=== PATIENT | male | born 1975 | race Caucasian/White ===

== ENCOUNTER 2017-05-26 22:19 | Emergency (ER) | payer OTHER ==
--- NOTE | ~2017-05-26 | ER ---
PATIENT'S NAME: TIMOTEO NAJERA [facility] AGE: 41 Y [address] ROOM: [place], [place] [id number] LOCATION: [facility] ADMIT DATE: 05/26/2017 ER/Outpatient Report DISCHARGE DATE: 05/26/2017 FAMILY PHYSICIAN: Liborio Whitley MD ATTENDING PHYSICIAN: Lennox Soto Time of Arrival: 2223 hours. Time of Evaluation: 2223 hours. CHIEF COMPLAINT: Right knee injury. HISTORY OF PRESENT ILLNESS: The patient states approximately 3 hours ago, he was playing with his kids, got a raspberry on his right knee. As the night has gone on, it seemed different, a little more painful and felt amador than what it had. He does normally ice his knees, and he is going to physical therapy for some tendinitis issues that he has. He has been icing it. It did not seem to help tonight. ALLERGIES: HE HAS NO KNOWN ALLERGIES. CURRENT MEDICATIONS: On his chart and reviewed by me. PAST MEDICAL HISTORY: Tendinopathy of the knees, GERD, seasonal allergies. PAST SURGICAL HISTORY: Hernia repair, appendectomy, foot surgery. SOCIAL HISTORY: Denies use of tobacco or drugs. Drinks alcohol socially. REVIEW OF SYSTEMS: All negative other than those mentioned in the HPI. PHYSICAL EXAMINATION: VITAL SIGNS: He states he is 5 feet 7 inches. He weighs 101.2 kg. Blood pressure is 164/93, pulse of 82, respirations 16, temperature of 98 temporal scanner, and O2 saturation 97% on room air. GENERAL: He is awake, alert, and oriented x4. SKIN: [place], warm, and dry. RESPIRATIONS: Even and nonlabored. Lung sounds are clear throughout. PATIENT'S NAME: TIMOTEO NAJERA [facility] AGE: 41 Y [address] ROOM: [place], [place] [address] LOCATION: [facility] ADMIT DATE: 05/26/2017 ER/Outpatient Report DISCHARGE DATE: 05/26/2017 FAMILY PHYSICIAN: Liborio Whitley MD ATTENDING PHYSICIAN: Lennox Soto HEART: Regular rate and rhythm. EXTREMITIES: The patient has an abrasion with hematoma noted of the right medial knee area. He has good range of motion. Good strength to the knee. Negative drawer's. Negative ballottement. Positive pedal pulses. LABORATORY DATA AND X-RAYS: X-ray was completed. No bony abnormality is seen. Swelling noted subcutaneous, not involving the joint. IMPRESSION: Contusion to the right knee. PLAN: Home, rest. Ice to the knee. Prescription was written for [place] for pain. He is to continue with physical therapy tomorrow as scheduled. Follow up with primary provider if symptoms worsen or persist in the next 2 to 3 days. He verbalized understanding. ADILSON JOHNSON APRN FOR MD KEIRY JOSÉ/hal /[id number] d: 05/27/170 t: 05/27/170, OUTPATIENT REPORT
== END 2017-05-26 23:21 | disposition disaster alternative care site (69) ==
LOC: GMED 22:19
DX: S80.01XA Contusion of right knee, initial encounter (principal); K21.9 Gastro-esophageal reflux disease without esophagitis; Z90.49 Acquired absence of other specified parts of digestive tract; Z98.890 Other specified postprocedural states; Z79.899 Other long term (current) drug therapy; X58.XXXA Exposure to other specified factors, initial encounter